=== PATIENT | male | born 1975 | race Two or more races ===

== ENCOUNTER 2023-11-27 11:59 | Emergency (ER) | payer BC, OTHER ==
[~2023-11-27] VITALS: Ht 177.8 cm; Wt 72.6 kg
--- NOTE | 2023-11-27 12:15 | NUR ---
BIBS FOR C/O PAIN AND SWELLING ON THE RIGHT SIDE OF THE FACE. ON CIPRO X 3 DAYS TOOK 3 ALEVE THIS AM
[2023-11-27] MEDS: IV NS 0.9% 1,000 ML BAG IV ONE (12:33)
--- NOTE | 2023-11-27 12:37 | NUR ---
18g IV established in the left forearm. Blood drawn labeled at bedside and sent to lab for processing.
[2023-11-27] MEDS ORDERED: IOHEXOL-300 100 ML VIAL IV ONE (12:47)
[2023-11-27] MEDS ORDERED: IV NS 0.9% 250 ML IV ONE (12:47)
[2023-11-27] MEDS ORDERED: KETOROLAC TROMETHAMINE 15 MG/ML VIAL ONE (12:48)
[2023-11-27] MEDS ORDERED: PIPERACI/TAZO 3.375GM/D5W 50ML PB IV ONE (12:48)
[2023-11-27] MEDS: PIPERACILLIN /TAZOBACTAM 3.375 G in IV D5W 50 ML IV ONE (13:10)
[2023-11-27 13:12] LABS: BASOPHILS % (AUTO) 0.3 % (0.0-2.0); EOSINOPHILS # (AUTO) 0.3 K/uL (0.0-0.7); EOSINOPHILS % (AUTO) 2.8 % (0.0-6.0); HEMATOCRIT 41 % (39-51); HEMOGLOBIN 13.6 g/dL (13.5-17.5); LYMPHOCYTES # (AUTO) 1.3 K/uL (0.8-4.8); LYMPHOCYTES % (AUTO) 13.9 % (20.0-44.0); MEAN CORPUSCULAR HEMOGLOBIN 31 PG (26.0-33.0); MEAN CORPUSCULAR HGB CONC 33 g/dl (31.0-36.0); MEAN CORPUSCULAR VOLUME 93 fL (80-96); MONOCYTES # (AUTO) 1.3 K/uL (0.1-1.30); MONOCYTES % (AUTO) 13.9 % (2.0-12.0); NEUTROPHILS # (AUTO) 6.6 K/uL (1.8-8.9); NEUTROPHILS % (AUTO) 69.1 % (43.0-81.0); PLATELET COUNT (AUTO) 286 K/uL (150-450); RED BLOOD CELL COUNT(AUTO) 4.41 MIL/uL (4.5-6.0); WHITE BLOOD COUNT (AUTO) 9.5 K/uL (4.3-11.0)
[2023-11-27] MEDS: KETOROLAC TROMETHAMINE 15 MG/ML VIAL IV ONE (13:13)
[2023-11-27 13:17] LABS: CALCIUM, SERUM 9.2 mg/dL (8.5-10.1); CREATININE 0.8 mg/dL (0.6-1.3); POTASSIUM 3.7 mmol/L (3.5-5.1)
[2023-11-27] MEDS ORDERED: NAPR-1164 PO (13:56)
[2023-11-27] MEDS ORDERED: AMOX-430 PO (13:56)
[2023-11-27 14:57] VITALS: BP 149/78; TEMP 98.2; O2SAT 99
== END 2023-11-27 14:57 | disposition home or self-care (01) ==
LOC: ER 12:03
DX: K11.20 Sialoadenitis, unspecified (principal)
CPT/HCPCS: 99285; 96365; 70491; 96361; 96375; 85025; 80048; 36415; J2543 ×2; J7060; J7050; Q9967; J1885

== ENCOUNTER 2023-11-29 21:24 | Emergency (ER) | payer OTHER ==
[~2023-11-29] VITALS: Ht 177.8 cm; Wt 68.0 kg
[~2023-11-29 21:24] MED LIST: AMOX-430 PO; NAPR-1164 PO
[2023-11-29 23:45] VITALS: BP 146/76; TEMP 98.1; O2SAT 100
== END 2023-11-29 23:57 | disposition home or self-care (01) ==
LOC: ER 21:28
DX: K11.20 Sialoadenitis, unspecified (principal); Z79.899 Other long term (current) drug therapy